=== PATIENT | female | born 1985 | race Caucasian/White ===

== ENCOUNTER 2016-09-02 11:55 | Emergency (ER) | payer OTHER ==
[~2016-09-02] VITALS: Ht 170.2 cm; Wt 99.0 kg
[~2016-09-02 11:55] MED LIST: BENTYL20 MG PO; CLONAZEPAM1 MG PO; GABAPENTIN600 MG PO; GEODON60 MG PO; KLONOPIN1 MG PO; LEXAPRO10 MG PO; MACROBID100 MG PO; MEGESTROL ACETA40 MG PO; MULTIPLE VITAM1 EACH PO; NEURONTIN600 MG PO; PRENATAL TABLE1 EAC3 PO; PROZAC20 MG PO
[2016-09-02 12:58] LABS: HEMATOCRIT 39.6 % (36.0-46.0); MCH 27.1 PG (29.0-34.0); MCHC 32.8 G/DL (30.0-36.0); MCV 82.5 FL (83-99); PLATELET COUNT 285 K/uL (156-360); RBC DIS.WIDTH-CV 13.4 % (11.8-14.6); RBC DIS.WIDTH-SD 39.3 % (39-53); WHITE BLOOD COUNT 7.5 K/uL (4.1-10.2)
[2016-09-02 13:03] LABS: CHLORIDE 105 mEq/L (99-109); POTASSIUM 4.3 mEq/L (3.7-5.4); SODIUM 140 mEq/L (136-147)
[2016-09-02 13:05] LABS: GLUCOSE 99 mg/dL (70-99)
[2016-09-02 13:06] LABS: ANION GAP 11 MEQ/L (2-14)
[2016-09-02 13:07] LABS: TOTAL BILIRUBIN 0.3 mg/dL (0.0-1.0)
[2016-09-02 13:08] LABS: SERUM ETHYL ALCOHOL < 10 mg/dL
[2016-09-02 13:09] LABS: ALKALINE PHOSPHATASE 55 IU/L (3-129); GFR ESTIMATE (CALCULATED) > 59 mL/min/
[2016-09-02 13:10] LABS: UREA NITROGEN (BUN) 12 mg/dL (9-23)
[2016-09-02 15:09] LABS: ADD MIUA? YES; BILIRUBIN NEGATIVE; BLOOD NEGATIVE; COLOR YELLOW ((YELLOW)); GLUCOSE (STRIP) NEGATIVE; KETONES NEGATIVE; LEUKOCYTES NEGATIVE; NITRITE NEGATIVE; PH, URINE 7.5 (5-8); PROTEIN (STRIP) TRACE; SPECIFIC GRAVITY 1.024 (1.000-1.030); UROBILINOGEN 0.2 MG/DL (0.2-1.0)
[2016-09-02 15:19] LABS: AMPHETAMINE NEGATIVE (500 ng/mL); BARBITURATES NEGATIVE (200 ng/mL); BENZODIAZEPINES NEGATIVE (150 ng/mL); COCAINE NEGATIVE (150 ng/mL); INTERNAL CONTROLS VALID? YES; METHADONE NEGATIVE (200 ng/mL); METHAMPHETAMINE NEGATIVE (500 ng/mL); OPIATES (MORPHINE) NEGATIVE (100 ng/mL); OXYCODONE NEGATIVE (100 ng/mL); PHENCYCLIDINE NEGATIVE (25 ng/mL); PROPOXYPHENE NEGATIVE (300 ng/mL); THC CANNABINOIDS NEGATIVE (50 ng/mL); TRICYCLIC ANTIDEPRESSANTS NEGATIVE (300 ng/mL)
[2016-09-02 15:35] LABS: RED BLOOD CELLS NONE SEEN /HPF (0-5)
[2016-09-02 15:36] LABS: BACTERIA RARE; CASTS NONE SEEN /LPF; CRYSTALS NONE SEEN; EPITHELIAL CELLS 2+; MUCUS NONE SEEN; WHITE BLOOD CELLS RARE /HPF (0-5)
[2016-09-02 17:30] VITALS: BP 116/75
== END 2016-09-02 18:28 ==
LOC: EME 11:55
PROVIDERS: Emergency Medicine
DX: F32.9 Major depressive disorder, single episode, unspecified (principal); R45.851 Suicidal ideations; F41.0 Panic disorder [episodic paroxysmal anxiety]; Z91.5 Personal history of self-harm; Z88.6 Allergy status to analgesic agent
CPT/HCPCS: 80053; 81003; 85027; 99281; 99284; G0480

== ENCOUNTER 2016-10-20 10:45 | Emergency (ER) | payer OTHER ==
[~2016-10-20] VITALS: Ht 170.2 cm; Wt 100.2 kg
[2016-10-20 11:34] LABS: AMPHETAMINE NEGATIVE (500 ng/mL); BARBITURATES NEGATIVE (200 ng/mL); BENZODIAZEPINES NEGATIVE (150 ng/mL); COCAINE NEGATIVE (150 ng/mL); INTERNAL CONTROLS VALID? YES; METHADONE NEGATIVE (200 ng/mL); METHAMPHETAMINE NEGATIVE (500 ng/mL); OPIATES (MORPHINE) NEGATIVE (100 ng/mL); OXYCODONE NEGATIVE (100 ng/mL); PHENCYCLIDINE NEGATIVE (25 ng/mL); PROPOXYPHENE NEGATIVE (300 ng/mL); THC CANNABINOIDS NEGATIVE (50 ng/mL); TRICYCLIC ANTIDEPRESSANTS NEGATIVE (300 ng/mL)
[2016-10-20 12:05] LABS: HEMATOCRIT 41.2 % (36.0-46.0); MCH 27.1 PG (29.0-34.0); MCHC 32.8 G/DL (30.0-36.0); MCV 82.7 FL (83-99); MEAN PLAT.VOLUME 10.2 uM^3 (9.5-12.4); PLATELET COUNT 334 K/uL (156-360); RBC DIS.WIDTH-SD 39.2 % (39-53); RED BLOOD COUNT 4.98 M/uL (3.80-5.20); WHITE BLOOD COUNT 6.8 K/uL (4.1-10.2)
[2016-10-20 12:14] LABS: CHLORIDE 109 mEq/L (99-109); POTASSIUM 4.4 mEq/L (3.7-5.4); SODIUM 141 mEq/L (136-147)
[2016-10-20 12:16] LABS: GLUCOSE 98 mg/dL (70-99)
[2016-10-20 12:18] LABS: ANION GAP 9 MEQ/L (2-14)
[2016-10-20 12:19] LABS: SERUM ETHYL ALCOHOL < 10 mg/dL
[2016-10-20 12:20] LABS: GFR ESTIMATE (CALCULATED) > 59 mL/min/
[2016-10-20 12:21] LABS: UREA NITROGEN (BUN) 12 mg/dL (9-23)
[2016-10-20 12:28] LABS: QUANTITATIVE HCG < 4.0 MIU/ML
[2016-10-20] MEDS ORDERED: KLONOPIN2 MG PO (15:37)
[2016-10-20] MEDS ORDERED: GEODON40 MG PO (15:37)
[2016-10-20] MEDS ORDERED: ZIPRASIDONE HCL80 MG PO (15:38)
[2016-10-20] MEDS ORDERED: INDERAL10 MG PO (15:40)
[2016-10-20] MEDS ORDERED: FLUVOXAMINE MA100 MG PO (15:40)
[2016-10-20] MEDS ORDERED: VITAMIN D2000 UNI1 PO (15:41)
[2016-10-20 16:10] VITALS: BP 116/66
== END 2016-10-20 18:23 ==
LOC: EME 10:45
DX: F31.5 Bipolar disorder, current episode depressed, severe, with psychotic features (principal); R45.851 Suicidal ideations; Z87.442 Personal history of urinary calculi; Z87.891 Personal history of nicotine dependence
CPT/HCPCS: 80048; 84702; 85027; 90837; 99281; 99284; G0480

== ENCOUNTER 2017-03-06 15:58 | Emergency (ER) | payer OTHER ==
[~2017-03-06] VITALS: Ht 170.2 cm; Wt 102.0 kg
[~2017-03-06 15:58] MED LIST changes: +FLUVOXAMINE MA100 MG PO; +GEODON40 MG PO; +INDERAL10 MG PO; +KLONOPIN2 MG PO; +VITAMIN D2000 UNI1 PO; +ZIPRASIDONE HCL80 MG PO
[2017-03-06 17:37] LABS: HEMATOCRIT 45.3 % (36.0-46.0); MCH 27.9 PG (29.0-34.0); MCHC 33.6 G/DL (30.0-36.0); MCV 83.3 FL (83-99); MEAN PLAT.VOLUME 9.6 uM^3 (9.5-12.4); PLATELET COUNT 305 K/uL (156-360); RBC DIS.WIDTH-CV 12.5 % (11.8-14.6); RBC DIS.WIDTH-SD 37.3 % (39-53); RED BLOOD COUNT 5.44 M/uL (3.80-5.20); WHITE BLOOD COUNT 9.1 K/uL (4.1-10.2)
[2017-03-06 17:42] LABS: CHLORIDE 105 mEq/L (99-109); SODIUM 140 mEq/L (136-147)
[2017-03-06 17:45] LABS: GLUCOSE 94 mg/dL (70-99)
[2017-03-06 17:46] LABS: ANION GAP 12 MEQ/L (2-14)
[2017-03-06 17:47] LABS: TOTAL BILIRUBIN 0.5 mg/dL (0.0-1.0)
[2017-03-06 17:48] LABS: ALKALINE PHOSPHATASE 70 IU/L (3-129); GFR ESTIMATE (CALCULATED) > 59 mL/min/
[2017-03-06 17:49] LABS: UREA NITROGEN (BUN) 9 mg/dL (9-23)
[2017-03-06 17:52] LABS: LIPASE 15 U/L (1.0-51.0)
[2017-03-06 18:00] LABS: QUANTITATIVE HCG < 4.0 MIU/ML
[2017-03-06 19:25] LABS: ADD MIUA? YES; BILIRUBIN NEGATIVE; BLOOD NEGATIVE; COLOR YELLOW ((YELLOW)); GLUCOSE (STRIP) NEGATIVE; KETONES 80; LEUKOCYTES NEGATIVE; NITRITE NEGATIVE; PROTEIN (STRIP) NEGATIVE; SPECIFIC GRAVITY 1.016 (1.000-1.030); UROBILINOGEN 0.2 MG/DL (0.2-1.0)
[2017-03-06 19:31] LABS: BACTERIA RARE /HPF; EPITHELIAL CELLS 1+ /HPF; MUCUS 4+ /LPF; RED BLOOD CELLS 0-5 /HPF (0-5); UCUL ADDED? NO; WHITE BLOOD CELLS 0-5 /HPF (0-5)
[2017-03-06] MEDS ORDERED: ZOFRAN ODT4 MG PO (19:57)
[2017-03-06] MEDS ORDERED: NORCO 5/3251 TABLET PO (19:57)
[2017-03-06 20:12] VITALS: BP 116/81
== END 2017-03-06 20:13 | disposition home or self-care (01) ==
LOC: EME 15:58 → EDBD 15:58 → EME 20:13
DX: R10.10 Upper abdominal pain, unspecified (principal); R11.2 Nausea with vomiting, unspecified; R19.7 Diarrhea, unspecified; F31.9 Bipolar disorder, unspecified; Z87.442 Personal history of urinary calculi; Z87.891 Personal history of nicotine dependence
CPT/HCPCS: 76705; 80053; 81003; 83690; 84702; 85027; 93005; 99281; 99284; J1885